=== PATIENT | female | born 1990 | race Caucasian/White ===

== ENCOUNTER 2017-02-03 20:19 | Emergency (ER) | payer MEDICAID ==
[2015-09-10 01:18] VITALS: BMI 27.1
[~2017-02-03 20:19] MED LIST: IBUPROFEN600 MG PO; PERCOCET 5-3251 TAB PO; PRENATAL COMPLE1 TAB PO
== END 2017-02-03 23:00 | disposition home or self-care (01) ==
LOC: D.ER 20:19
DX: K08.89 Other specified disorders of teeth and supporting structures (principal); F17.200 Nicotine dependence, unspecified, uncomplicated

== ENCOUNTER → 2017-05-10 16:30 | Outpatient (CLI) | payer MEDICAID ==
[2015-09-10 01:18] VITALS: BMI 27.1
== END | disposition home or self-care (01) ==
LOC: D.LDO 16:30
DX: O36.8130 Decreased fetal movements, third trimester, not applicable or unspecified (principal); Z3A.39 39 weeks gestation of pregnancy

== ENCOUNTER → 2017-05-12 17:12 | Outpatient (CLI) | payer MEDICAID ==
[2015-09-10 01:18] VITALS: BMI 27.1
== END | disposition home or self-care (01) ==
LOC: D.LDO 17:12
DX: O48.0 Post-term pregnancy (principal); Z3A.40 40 weeks gestation of pregnancy

== ENCOUNTER 2017-05-15 04:54 | Inpatient (IN) | payer MEDICAID ==
[~2017-05-15] VITALS: Ht 162.6 cm; Wt 71.2 kg
[2017-05-15] MEDS ORDERED: PRENATAL COMPLE1 TAB PO (05:19)
[2017-05-15 05:22] VITALS: BP 109/66; BMI 27.0
[2017-05-15 05:25] VITALS: BP 109/66; Ht 162.6 cm; Wt 71.2 kg
[2017-05-15 06:09] LABS: HEMATOCRIT 34.6 % (36.0-48.0); HEMOGLOBIN 11.8 g/dL (12-16); MCH 32.2 pg (26.0-34.0); MCHC 34.1 g/dL (31.0-37.0); MCV 94.5 fL (80.0-100.0); MEAN PLATELET VOLUME 11.2 fL (7.4-10.4); RBC 3.66 10x6/uL (4.00-5.40); RDW 12.6 % (11.5-14.5); WBC 8.6 10x3/uL (4.8-10.8)
[2017-05-15 06:24] LABS: AMORPHOUS SEDIMENT <1+ /lpf (NONE SEEN); APPEARANCE CLOUDY (CLEAR); BACTERIA MODERATE /hpf (NONE SEEN); BILIRUBIN NEGATIVE (NEGATIVE); COLOR YELLOW (YELLOW); GLUCOSE NEGATIVE (NEGATIVE); KETONE NEGATIVE (NEGATIVE); LEUKOCYTE ESTERASE 1+ (NEGATIVE); MUCUS <1+ /lpf (NONE SEEN); NITRITE NEGATIVE (NEGATIVE); PROTEIN NEGATIVE (NEGATIVE); SPECIFIC GRAVITY 1.015 (1.005-1.020); UROBILINOGEN NORMAL (NORMAL)
--- NOTE | 2017-05-15 19:30 | NUR ---
RN TO PT BS FOR [place]. PT RESTING IN BED IN SEMI-FOWLERS POSITION, HOLDING . PT IN NO ACUTE DISTRESS. PT IS A 26YO G3 NOW WITH OF VIABLE FEMALE INFANT TODAY @ 1259. @ 40.5 WKS GESTATION. PT WITH NO LACERATION OR EPIS. AAOX3. HR REGULAR. LUNGS CTAB. ABDOMEN SOFT AND NON TENDER. BS ACTIVE TIMES 4. FUNDUS FIRM AND ML @ U/-1. LOCHIA RUBRA SCANT. ALIZA PAD AND PANTIES IN PLACE. PERINIUM APPEARS TO BE INTACT WITH MINIMAL SWELLING NOTED. PT DENIES DIFFICULTY VOIDING. STATES SHE HAS PASSED GAS SINCE BUT HAS NOT HAD A BM. NO SWELLING NOTED TO UPPER OR LOWER EXTREMITIES BILATERALLY. [address] TO RIGHT FA, FLUSHED AT THIS TIME WITH 5CC NS WITHOUT DIFFICULTY. NO REDNESS OR EDEMA NOTED TO SITE. PT RATES PAIN 2/10, DENIES THE NEED FOR PAIN MEDICATION AT THIS TIME. BED IN LOW POSITION, SIDE RAILS UP TIMES 2, CALL LIGHT AND PHONE IN REACH. WILL CONT TO MONITOR PT STATUS. REMAINS AT PT BS FOR COUPLET CARE.
[2017-05-15 19:41] VITALS: BP 114/69
--- NOTE | 2017-05-15 20:15 | NUR ---
RN CALLED TO PT BS. PT REQUESTS LINENS FOR SO FOR NIGHT PROVIDED. PT ALSO REQUESTS ADDITIONAL COKE, PROVIDED. PT DENIES ANY FURTHER NEEDS AT THIS TIME. BED IN LOW POSITION, SIDE RAILS UP TIMES 2, CALL LIGHT AND PHONE IN REACH. SO REMAINS AT PT BS FOR SUPPORT AND ASSISTANCE. REMAINS AT PT BS FOR COUPLET CARE. WILL CONT TO LEROY PT STATUS.
--- NOTE | 2017-05-15 21:13 | NUR ---
RN TO PT BS TO PROVIDED 2100 DOSE OF MOM. PROVIDED AT THIS TIME WITH FRESH COKE. PT C/O PAIN, RATES 05/22, REQUESTS MEDICATION. 1 TAB DEMEROL 50 AND 1 TAB IBUPROFEN PROVIDED TO PT AT THIS TIME. PT DENIES ANY FURTHER NEEDS. BED IN LOW POSITION, SIDE RAILS UP TIMES 2, CALL LIGHT AND PHONE IN REACH. FAMILY AT PT BS TIMES 3 FOR SUPPORT AND ASSISTANCE. REMAINS AT PT BS FOR COUPLET CARE. WILL CONT TO MONITOR PT STATUS.
--- NOTE | 2017-05-15 23:54 | NUR ---
RN TO PT BS FOR ROUNDS. PT RESTING IN BED IN SEMI-FOWLERS POSITION, VISITING WITH MULTIPLE FAMILY MEMBERS AT BS, IN NO ACUTE DISTRESS. PT DENIES ANY NEEDS AT THIS TIME. BED IN LOW POSITION, SIDE RAILS UP TIMES 2, CALL LIGHT AND PHONE IN REACH. FAMILY REMAINS AT PT BS FOR SUPPORT AND ASSISTANCE. REMAINS AT PT BS FOR COUPLET CARE. WILL CONT TO MONITOR PT STATUS.
--- NOTE | 2017-05-16 01:16 | NUR ---
RN CALLED TO PT BS WITH REQUEST OF ESTEE SIU. PROVIDED TO PT. PT RESTING IN BED IN SEMI-FOWLERS POSITION IN NO ACUTE DISTRESS. PT DENIES ANY FURTHER NEEDS AT THIS TIME. SO REMAINS AT PT BS FOR SUPPORT AND ASSISTANCE. INFANT REMAINS AT PT BS FOR COUPLET CARE. WILL CONT TO MONITOR PT STATUS.
--- NOTE | 2017-05-16 02:55 | NUR ---
RN TO BEDSIDE FOR ROUNDS. PT RESTING WITH EYES CLOSED IN SEMI FOWLERS POSITION. RESPIRATIONS REGULAR AND UNLABORED. NO S/S OF DISTRESS NOTED. BED IN LOW POSITION WITH UPPER SIDE RAILS RAISED X2. CL AND PHONE WITHIN PT REACH. WILL CONT TO MONITOR AND ASSIST PRN.
--- NOTE | 2017-05-16 04:10 | NUR ---
RN TO BEDSIDE FOR ROUNDS. PT RESTING IN SEMI FOWLERS POSITION ON RIGHT SIDE. RESPIRATIONS REGULAR AND UNLABORED. NO S/S OF DISTRESS NOTED. BED IN LOW POSITION WITH UPPER SIDE RAILS RAISED X2. CL AND PHONE WITHIN REACH. WILL CONT TO MONITOR AND ASSIST PRN.
--- NOTE | 2017-05-16 05:12 | NUR ---
RN TO PT BS FOR ROUNDS. PT RESTING IN BED IN SEMI-FOWLERS POSITION, WITH EYES CLOSED, IN NO ACUTE DISTRESS. RESPIRATIONS EVEN AND UNLABORED. BED IN LOW POSITION, SIDE RAILS UP TIMES 2, CALL LIGHT AND PHONE IN REACH. SO REMAINS AT PT BS FOR SUPPORT AND ASSISTANCE. WILL CONT TO MONITOR PT STATUS.
[2017-05-16 06:11] LABS: RAPID PLASMA REAGIN Non Reactive (Non Reactive)
[2017-05-16 07:13] LABS: HEMATOCRIT 35.9 % (36.0-48.0); HEMOGLOBIN 11.9 g/dL (12-16); MCH 31.8 pg (26.0-34.0); MCHC 33.1 g/dL (31.0-37.0); MEAN PLATELET VOLUME 10.8 fL (7.4-10.4); RBC 3.74 10x6/uL (4.00-5.40); RDW 12.7 % (11.5-14.5); WBC 9.3 10x3/uL (4.8-10.8)
[2017-05-16 07:30] VITALS: BP 112/75
--- NOTE | 2017-05-16 07:30 | NUR ---
ASSESSMENT DONE. PT SITTING UP IN BED HOLDING . REG DIET AT BEDSIDE. VERBAL RESPONSES APPRO TO QUESTIONS. ALMAZAN AT WILL. WHEN ASK - CO CRAMPING LOWER ABD AND SOME LOWER BACK DISCOMFORT. RATES CRAMPING A 7 ON SCALE OF 0-10. STATES WOULD LIKE SOMETHING FOR PAIN. FAMILY MEMBER AT BEDSIDE.
--- NOTE | 2017-05-16 09:20 | NUR ---
UP AND ABOUT IN ROOM. DENIES NEED. RATES PAIN 2 ON SCALE OF 0-10. STATES IPAIN IS BETTER. COLA PROVIDED PER REQUEST.
--- NOTE | 2017-05-16 10:15 | NUR ---
DR VALENZUELA HERE TO SEE PT- NEW ORDERS RECEIVED.
[2017-05-16] MEDS ORDERED: IBUPROFEN600 MG PO (10:32)
--- NOTE | 2017-05-16 11:45 | NUR ---
DISCHARGE INST VERBAL AND WRITTEN GIVEN. PRESCRIPTION FOR MOTRIN GIVEN ALONG WITH DRUG INFO SHEETS. PT MED REC GIVEN. HEALTH SUMMARY GIVEN. PFW POST INST GIVEN. DISCHARGE INST FOR VAG DEL GIVEN. PT DENIES QUESTIONS.
--- NOTE | 2017-05-16 13:30 | NUR ---
SALINE LOCK REMOVED- CATH TIP INTACT. BANDAIDE APPLIED. COLA GIVEN PER REQUEST. IN ROOM IN CRIB. PT DENIES NEEDS.
[2017-05-16 14:25] VITALS: BP 98/61
--- NOTE | 2017-05-16 15:00 | NUR ---
DISCHARGED HOME WITH AND FAMILY. TO AUTO VIA W/C PER Jeniffer DUNAWAY RN.
== END 2017-05-16 15:00 | disposition home or self-care (01) | DRG 775 ==
LOC: D.LD 04:54 → D.MS 05:00 → D.LD 18:30
PROVIDERS: ADMIT Obstetrics & Gynecology
PROC: 10E0XZZ Delivery of Products of Conception, External Approach (ICD-10-PCS; principal; 2017-05-15)
DX: O99.334 Smoking (tobacco) complicating childbirth (principal); Z3A.40 40 weeks gestation of pregnancy; Z37.0 Single live birth; O48.0 Post-term pregnancy

== ENCOUNTER 2017-11-11 02:11 | Emergency (ER) | payer MEDICAID ==
[2017-05-15 05:25] VITALS: BMI 27.0
== END 2017-11-11 03:48 | disposition home or self-care (01) ==
LOC: D.ER 02:11
DX: S00.83XA Contusion of other part of head, initial encounter (principal); S80.01XA Contusion of right knee, initial encounter; S90.02XA Contusion of left ankle, initial encounter; V43.02XA Car driver injured in collision with other type car in nontraffic accident, initial encounter; Y93.89 Activity, other specified; Y92.410 Unspecified street and highway as the place of occurrence of the external cause

== ENCOUNTER 2017-12-21 10:05 | Emergency (ER) | payer MEDICAID ==
[2017-05-15 05:25] VITALS: BMI 27.0
== END 2017-12-21 12:13 | disposition home or self-care (01) ==
LOC: D.ER 10:05
DX: S69.92XA Unspecified injury of left wrist, hand and finger(s), initial encounter (principal); W23.0XXA Caught, crushed, jammed, or pinched between moving objects, initial encounter; Y92.019 Unspecified place in single-family (private) house as the place of occurrence of the external cause; S62.607A Fracture of unspecified phalanx of left little finger, initial encounter for closed fracture; F17.200 Nicotine dependence, unspecified, uncomplicated

== ENCOUNTER → 2018-05-03 14:32 | Outpatient (CLI) | payer MEDICAID ==
[2017-05-15 05:25] VITALS: BMI 27.0
== END | disposition home or self-care (01) ==
LOC: D.MRI 14:32
DX: M79.642 Pain in left hand (principal)